=== PATIENT | female | born 1940 | race Two or more races ===

== ENCOUNTER 2021-04-21 19:14 | Emergency (ER) | payer OTHER ==
[~2021-04-21] VITALS: Ht 165.1 cm; Wt 54.9 kg
[2021-04-21] MEDS ORDERED: SYNTHROID75 MCG (20:06)
== END 2021-04-22 01:07 | disposition home or self-care (01) ==
LOC: ER 19:14
DX: R07.89 Other chest pain (principal)

== ENCOUNTER 2021-08-15 18:33 | Emergency (ER) | payer OTHER ==
[~2021-08-15] VITALS: Ht 177.8 cm; Wt 70.3 kg
[~2021-08-15 18:33] MED LIST: SYNTHROID75 MCG
== END 2021-08-15 21:36 | disposition home or self-care (01) ==
LOC: ER 18:33
DX: K29.70 Gastritis, unspecified, without bleeding (principal)

== ENCOUNTER 2021-11-25 08:05 | Emergency (ER) | payer OTHER ==
[~2021-11-25] VITALS: Ht 165.1 cm; Wt 54.9 kg
[2021-11-25] MEDS ORDERED: PANTOPRAZOLE SO40 MG PO (08:19)
[2021-11-25] MEDS ORDERED: DOCUSATE CALCI240 MG PO (08:20)
== END 2021-11-25 17:16 | disposition home or self-care (01) ==
LOC: ER 08:05
DX: K29.70 Gastritis, unspecified, without bleeding (principal); K57.30 Diverticulosis of large intestine without perforation or abscess without bleeding; Z88.6 Allergy status to analgesic agent; Z88.0 Allergy status to penicillin

== ENCOUNTER 2022-07-14 18:34 | Emergency (ER) | payer OTHER ==
[~2022-07-14] VITALS: Ht 165.1 cm; Wt 57.6 kg
[~2022-07-14 18:34] MED LIST changes: +DOCUSATE CALCI240 MG PO; +PANTOPRAZOLE SO40 MG PO
== END 2022-07-14 22:09 | disposition home or self-care (01) ==
LOC: ER 18:34
DX: K64.8 Other hemorrhoids (principal); Z88.0 Allergy status to penicillin; Z88.6 Allergy status to analgesic agent

== ENCOUNTER 2022-10-24 08:03 | Outpatient (CLI) | payer OTHER | END 2022-10-24 08:13 | disposition home or self-care (01) | LOC: TOM 08:03 | DX: K62.5 Hemorrhage of anus and rectum (principal) ==